=== PATIENT | female | born 1965 | race Hispanic/Latino ===

== ENCOUNTER 2016-12-25 08:54 | Emergency (ER) | payer OTHER ==
[2016-12-25 09:26] VITALS: BP 157/86
[2016-12-25] MEDS ORDERED: MOTRIN PO ONE (10:46)
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
== END 2016-12-25 11:23 | disposition home or self-care (01) ==
LOC: ED 08:54
DX: M79.1 Myalgia (principal); E11.9 Type 2 diabetes mellitus without complications; K21.9 Gastro-esophageal reflux disease without esophagitis; Z87.891 Personal history of nicotine dependence; V49.49XA Driver injured in collision with other motor vehicles in traffic accident, initial encounter; Y93.9 Activity, unspecified; Y92.9 Unspecified place or not applicable; Y99.9 Unspecified external cause status
CPT/HCPCS: 99282